=== PATIENT | male | born 1990 | race Caucasian/White ===

== ENCOUNTER 2016-08-29 20:11 | Emergency (ER) | payer SELFPAY ==
[~2016-08-29] VITALS: Ht 185.4 cm; Wt 97.0 kg
[2016-08-29 20:18] VITALS: BP 128/80
[2016-08-29] MEDS ORDERED: BACITRACIN ZINC OINT 500U/GM, 0.9 GM ONE (21:12)
== END 2016-08-29 21:42 | disposition home or self-care (01) ==
LOC: ED 21:35
DX: S91.119A Laceration without foreign body of unspecified toe without damage to nail, initial encounter (principal); X58.XXXA Exposure to other specified factors, initial encounter; Y93.89 Activity, other specified; Y92.89 Other specified places as the place of occurrence of the external cause; Y99.8 Other external cause status
CPT/HCPCS: 12001